=== PATIENT | female | born 1975 ===

== ENCOUNTER 2017-12-14 12:43 | Outpatient (CLI) | payer OTHER ==
[~2017-12-14 12:43] MED LIST: CATAFLAN; ZANTAC300 MG PO; ZITHROMAX500 MG PO; ZYRTEC10 MG PO
== END 2017-12-14 12:45 | disposition home or self-care (01) ==
LOC: SONOGRAMA 12:43
DX: M75.112 Incomplete rotator cuff tear or rupture of left shoulder, not specified as traumatic (principal)